=== PATIENT | female | born 1945 | race African-American/Black ===

== ENCOUNTER 2023-07-02 16:52 | Emergency (ER) | payer MEDICARE, MEDICAID ==
[~2023-07-02] VITALS: Ht 167.6 cm; Wt 68.5 kg
[~2023-07-02 16:52] MED LIST: AMLO10TA4 PO; ATOR10TA69 PO; GLIP5TAB22; METF-414 PO; OMEP20CA14 PO
[2023-07-02 16:55] VITALS: O2SAT 99
[2023-07-02] MEDS ORDERED: LABETALOL 5MG/ML SYR 20 MG/4 ML SYRINGE IV NR (18:00)
[2023-07-02 21:15] VITALS: BP 155/66; PULSE 72; RESP 16; TEMP 99.2
== END 2023-07-02 21:30 | disposition home or self-care (01) ==
LOC: ER 16:52
DX: I10 Essential (primary) hypertension (principal); E11.9 Type 2 diabetes mellitus without complications; Z88.8 Allergy status to other drugs, medicaments and biological substances
CPT/HCPCS: 99291; 96374; J3490